=== PATIENT | male | born 1975 | race Asian ===

== ENCOUNTER 2022-03-26 15:22 | Emergency (ER) | payer OTHER ==
[~2022-03-26] VITALS: Ht 188 cm; Wt 96.2 kg
[2022-03-26 16:47] LABS: PLATELET COUNT 259 K/uL (142-355)
[2022-03-26 16:49] LABS: POTASSIUM 3.7 mmol/L (3.6-5.2)
[2022-03-26 16:52] LABS: PARTIAL THROMBOPLASTIN TIME 24.3 SECONDS (24.5-33.6)
[2022-03-26 18:30] VITALS: BP 123/79; TEMP 98.5
== END 2022-03-26 18:30 | disposition home or self-care (01) ==
LOC: ED 15:22
PROVIDERS: Hospitalist
DX: F41.1 Generalized anxiety disorder (principal)
CPT/HCPCS: 80053; 80307; 80320; 81000; 82550; 83880; 84484; 85027; 85610; 85730; 93005; 99283